=== PATIENT | male | born 1980 | race Two or more races ===

== ENCOUNTER 2020-11-05 10:37 | Inpatient (IN) | payer SELFPAY ==
[~2020-11-05] VITALS: Ht 185.4 cm; Wt 107.0 kg
[2020-11-05] MEDS ORDERED: SODIUM CHLORIDE FLUSH 10ML SYR IVF ONE (11:30)
[2020-11-05 11:31] LABS: BASOPHILS % (AUTO) 1 % (0-1); EOSINOPHILS % (AUTO) 3 % (1-7); LYMPHOCYTES % (AUTO) 17 % (22-44); MEAN CORPUSCULAR HEMOGLOBIN 27.5 pg (27.5-34.5); MEAN PLATELET VOLUME 8.7 fL (7.4-10.4); MONOCYTES % (AUTO) 7 % (2-9); NEUTROPHILS % (AUTO) 73 % (42-75); PLATELET COUNT 204 x10^3/uL (130-400); RED BLOOD COUNT 4.39 x10^6/uL (4.38-5.82); RED CELL DISTRIBUTION WIDTH 15.6 % (9.4-14.8)
[2020-11-05 11:42] LABS: ALANINE AMINOTRANSFERASE 39 U/L (12-78); ALBUMIN 3.1 g/dL (3.4-5.0); ANION GAP 11 mmol/L (5-15); CALCIUM 8.4 mg/dL (8.5-10.1); CHLORIDE 111 mmol/L (98-107); CREATININE 1.82 mg/dL (0.7-1.3)
[2020-11-05 11:47] LABS: ALKALINE PHOSPHATASE 54 U/L (45-117); BILIRUBIN,TOTAL 0.9 mg/dL (0.2-1.0); TOTAL PROTEIN 6.4 g/dL (6.4-8.2); TROPONIN I 0.068 ng/mL (0.000-0.045)
[2020-11-05] MEDS ORDERED: FUROSEMIDE 40 MG/4 ML IV ONE (12:30)
[2020-11-05] MEDS ORDERED: FUROSEMIDE 40 MG/4 ML ONE (12:31)
[2020-11-05] MEDS ORDERED: SODIUM CHLORIDE FLUSH 10ML SYR IVF PRN (13:00)
[2020-11-05] MEDS ORDERED: ENALAPRILAT 1.25 MG/ML, 2ML IVPush PRN (13:30)
[2020-11-05] MEDS ORDERED: HYDROcodone/APAP 5/325 TABLET PO PRN (13:30)
[2020-11-05] MEDS ORDERED: DOCUSATE 100 MG CAPSULE PO PRN (13:30)
[2020-11-05] MEDS ORDERED: ONDANSETRON ODT 4 MG PO PRN (13:30)
[2020-11-05] MEDS ORDERED: NITROGLYCERIN 0.4 MG BOTTLE (25 TABS) SL PRN (13:30)
[2020-11-05 15:31] VITALS: BP 118/90
[2020-11-05] MEDS: ACETAMINOPHEN 325 MG TABLET PO PRN ×2 (16:09→16:15)
[2020-11-05] MEDS: FUROSEMIDE 40 MG/4 ML IV SCH (18:01)
[2020-11-05] MEDS: CARVEDILOL 12.5 MG TABLET PO SCH (18:02)
[2020-11-05] MEDS ORDERED: FURO40TA6 PO (18:05)
[2020-11-05] MEDS ORDERED: CARV6.2512 PO (18:07)
[2020-11-05] MEDS ORDERED: LISI-170 PO (18:07)
[2020-11-05] MEDS ORDERED: ASPI81TA45 PO (18:09)
[2020-11-05 19:02] VITALS: BP 108/75
[2020-11-05 20:43] LABS: TROPONIN I 0.087 ng/mL (0.000-0.045)
[2020-11-05] MEDS: MELATONIN 5 MG TABLET PO PRN (21:44)
[2020-11-05] MEDS ORDERED: DIPHENHYDRAMINE 25 MG CAPSULE PO PRN (23:30)
[2020-11-05] MEDS: GUAIFENESIN/DM 200-20MG, 10ML UDC PO PRN (23:47)
[2020-11-06 00:16] VITALS: BP 122/86
[2020-11-06 02:21] LABS: MEAN CORPUSCULAR HGB CONC 32.3 g/dL (33.2-36.2); MEAN PLATELET VOLUME 9.2 fL (7.4-10.4); PLATELET COUNT 197 x10^3/uL (130-400); RED BLOOD COUNT 4.13 x10^6/uL (4.38-5.82); RED CELL DISTRIBUTION WIDTH 15.5 % (9.4-14.8)
[2020-11-06 02:28] LABS: ALBUMIN 2.9 g/dL (3.4-5.0); ANION GAP 8 mmol/L (5-15); CALCIUM 8.3 mg/dL (8.5-10.1); CHLORIDE 110 mmol/L (98-107)
[2020-11-06 02:32] LABS: ALANINE AMINOTRANSFERASE 36 U/L (12-78); ALKALINE PHOSPHATASE 54 U/L (45-117); BILIRUBIN,TOTAL 0.8 mg/dL (0.2-1.0); CREATININE 1.94 mg/dL (0.7-1.3); TOTAL PROTEIN 6.2 g/dL (6.4-8.2)
[2020-11-06 02:34] LABS: TROPONIN I 0.081 ng/mL (0.000-0.045)
[2020-11-06 02:47] LABS: EOS#(MANUAL) 0.11 x10^3/uL (0.0-0.4); EOS% (MANUAL) 2 % (1-7); LYMPH#(MANUAL) 1.49 x10^3/uL (1-3.4); LYMPHS% (MANUAL) 27 % (22-44); MONOS% (MANUAL) 9 % (2-9); SEG#(MANUAL) 3.41 x10^3/uL (1.8-6.8); SEGS% (MANUAL) 62 % (42-75)
[2020-11-06 02:48] LABS: ANISOCYTOSIS 1+; OVALOCYTES 1+; POLYCHROMASIA 1+
[2020-11-06 02:49] LABS: <PLATELET ESTIMATE> ADEQUATE; LARGE PLATELETS 1+
[2020-11-06] MEDS: CARVEDILOL 12.5 MG TABLET PO SCH ×2 (05:51→17:23)
[2020-11-06] MEDS: ACETAMINOPHEN 325 MG TABLET PO PRN ×2 (05:52→15:51)
[2020-11-06] MEDS ORDERED: METOLAZONE 5 MG TABLET PO SCH (07:30)
[2020-11-06 07:41] VITALS: BP 117/88
[2020-11-06] MEDS: FUROSEMIDE 40 MG/4 ML IV SCH ×2 (08:10→17:23)
[2020-11-06] MEDS ORDERED: POTASSIUM CHLORIDE 20 MEQ TAB.ER.PRT PO SCH (09:00)
[2020-11-06] MEDS ORDERED: LISINOPRIL 20 MG TABLET PO SCH (09:00)
[2020-11-06] MEDS: GUAIFENESIN/DM 200-20MG, 10ML UDC PO PRN ×2 (10:52→20:35)
[2020-11-06 13:12] VITALS: BP 114/83
[2020-11-06] MEDS ORDERED: POTASSIUM CHLORIDE 20 MEQ TAB.ER.PRT PO ONE (14:00)
[2020-11-06 14:59] LABS: ANION GAP 10 mmol/L (5-15); CALCIUM 8.6 mg/dL (8.5-10.1); CHLORIDE 105 mmol/L (98-107); CREATININE 1.86 mg/dL (0.7-1.3)
[2020-11-06 17:11] LABS: AMPHETAMINE SCREEN, URINE Negative (Negative); BARBITURATE SCREEN, URINE Negative (Negative); BENZODIAZEPINE SCREEN, URINE Negative (Negative); CANNABINOID SCREEN, URINE Negative (Negative); COCAINE SCREEN, URINE Negative (Negative); METHADONE SCREEN, URINE Negative (Negative); OPIATE SCREEN, URINE Negative (Negative)
[2020-11-06 20:24] VITALS: BP 108/80
[2020-11-06] MEDS: MELATONIN 5 MG TABLET PO PRN (20:35)
[2020-11-06] MEDS ORDERED: TEMAZEPAM 15 MG CAPSULE ONE (22:40)
[2020-11-06] MEDS ORDERED: TEMAZEPAM 15 MG CAPSULE PO ONE (23:00)
== END 2020-11-06 23:00 | disposition left against medical advice (07) | DRG 292 ==
LOC: ED 12:18 → EDIP 12:32 → 4EST 14:48
PROVIDERS: ADMIT Hospitalist; ATTEND Hospitalist
DX: I11.0 Hypertensive heart disease with heart failure (principal); E46 Unspecified protein-calorie malnutrition; N17.9 Acute kidney failure, unspecified; I50.43 Acute on chronic combined systolic (congestive) and diastolic (congestive) heart failure; I42.9 Cardiomyopathy, unspecified; E87.6 Hypokalemia; I08.1 Rheumatic disorders of both mitral and tricuspid valves; F17.200 Nicotine dependence, unspecified, uncomplicated; Z79.899 Other long term (current) drug therapy
CPT/HCPCS: 36415; 71045; 80048; 80053; 80307; 83735; 83880; 84100; 84484; 85025; 93005; 93306; 96374; 99285; G0378; J1940; Q0163